=== PATIENT | female | born 1985 | race Caucasian/White ===

== ENCOUNTER 2018-07-14 02:04 | Outpatient (CLI) | payer OTHER, SELFPAY ==
[2018-07-14 10:19] LABS: Cholesterol 258 mg/dL (50-200); HDL Cholesterol 51 mg/dL (40-60); LDL CHOLESTEROL 181 mg/dL (<100); TSH (W/Ref FT4) 1.28 uIU/mL (0.358-3.74); Triglyceride 60 mg/dL (30-150)
== END 2018-07-14 02:24 ==
PROVIDERS: PCP Family Medicine; Visit Provider Family Medicine
DX: Z00.00 Encounter for general adult medical examination without abnormal findings (principal); Z13.220 Encounter for screening for lipoid disorders; Z13.29 Encounter for screening for other suspected endocrine disorder
CPT/HCPCS: 36415; 80061; 83721; 84443

== ENCOUNTER 2018-10-17 10:15 | Outpatient (REF) | payer OTHER, SELFPAY ==
--- NOTE | 2018-10-17 09:30 | PAPFT_PTH ---
PATIENT: Kyara Archer LOC: [facility] U#:[id number] AGE/SX: 33/F ROOM: RE10/17/[address]: FLY Holland : 1985 BED: DIS: 10/17/2018 SPEC #: [id number] RECD: 10/17/18 13:02 STATUS: KAL BUSTAMANTE #: [id number] NEEMA: 10/17/18 09:[address]: Viridiana Choi DEPT: [facility] Cytology RECD BY: Clotilde Clark ENTERED: 10/17/18 13:02 SP TYPE: PAPFT OT DR: Carol Latham MD, DC Tissues: 1 - CX/ENDOCX FOR PAP SMEARS Procedures: PAP THIN PREP/UVM Screening HPV DNA PROBE Comments: [id number]
== END 2018-10-17 10:35 ==
LOC: LBN 10:15
PROVIDERS: PCP Family Medicine; Visit Provider Nurse Practitioner Family
DX: Z12.4 Encounter for screening for malignant neoplasm of cervix (principal); Z11.51 Encounter for screening for human papillomavirus (HPV)
CPT/HCPCS: 88142; 87624

== ENCOUNTER 2019-07-20 03:26 | Outpatient (CLI) | payer OTHER, SELFPAY ==
[2019-07-20 15:38] LABS: TSH (W/Ref FT4) 0.96 uIU/mL (0.36-3.74)
[2019-07-20 15:55] LABS: Hemoglobin A1C 5.5 % (3.8-5.6)
== END 2019-07-20 03:46 ==
PROVIDERS: PCP Family Medicine; Visit Provider Family Medicine
DX: E03.9 Hypothyroidism, unspecified (principal); R63.8 Other symptoms and signs concerning food and fluid intake
CPT/HCPCS: 36415; 83036; 84443

== ENCOUNTER 2020-08-19 16:25 | Outpatient (REF) | payer OTHER, SELFPAY ==
--- NOTE | 2020-08-19 16:00 | ENDOMET_PTH ---
PATIENT: Kyara Archer LOC: [facility] U#:[id number] AGE/SX: 35/F ROOM: RE08/19/[address]: Soheila Jarrell : 1985 BED: DIS: 08/19/2020 SPEC #: [id number] RECD: 08/19/20 18:08 STATUS: KAL BUSTAMANTE #: [id number] NEEMA: 08/19/20 16:[address]: Soheila Jarrell DEPT: Surgical Specimen RECD BY: Clotilde Clark ENTERED: 08/19/20 18:09 SP TYPE: Endomet OTHR DR: Carol Latham MD, DC Tissues: 1 - ENDOMETRIUM BX/CURRETTE Procedures: GROSS AND MICRO LEVEL 4 Comments:
== END 2020-08-19 16:26 | disposition home or self-care (01) ==
LOC: LBN 16:25
PROVIDERS: PCP Family Medicine; Visit Provider Obstetrics & Gynecology Gynecology
DX: N93.8 Other specified abnormal uterine and vaginal bleeding (principal); N85.01 Benign endometrial hyperplasia
CPT/HCPCS: 88305

== ENCOUNTER 2020-11-15 03:21 | Outpatient (CLI) | payer OTHER, SELFPAY ==
[2020-11-15 14:00] LABS: TSH (W/Ref FT4) 1.11 uIU/mL (0.36-3.74)
== END 2020-11-15 03:22 | disposition home or self-care (01) ==
LOC: LBO 03:22
PROVIDERS: PCP Family Medicine; Visit Provider Family Medicine
DX: E03.9 Hypothyroidism, unspecified (principal)
CPT/HCPCS: 36415; 84443

== ENCOUNTER 2021-05-12 03:36 | Outpatient (CLI) | payer OTHER, SELFPAY ==
[2021-05-12 12:30] LABS: TSH (W/Ref FT4) 0.43 uIU/mL (0.36-3.74)
[2021-05-12 18:26] LABS: Thyroglobulin Antibody <15 U/mL (<=60)
== END 2021-05-12 03:37 | disposition home or self-care (01) ==
LOC: LBO 03:36
PROVIDERS: PCP Family Medicine; Visit Provider Family Medicine
DX: Z00.00 Encounter for general adult medical examination without abnormal findings (principal); E03.9 Hypothyroidism, unspecified
CPT/HCPCS: 36415; 84443; 86800

== ENCOUNTER 2021-12-22 09:14 | Outpatient (REF) | payer OTHER, SELFPAY ==
--- NOTE | 2021-12-22 09:08 | PAPFT_PTH ---
PATIENT: Kyara Archer LOC: [place] U#:[id number] AGE/SX: 36/F ROOM: RE12/22/[address]: Soheila Jarrell : 1985 BED: DIS: 12/22/2021 SPEC #: [id number] RECD: 12/22/21 13:00 STATUS: KAL BUSTAMANTE #: [id number] NEEMA: 12/22/21 09:[address]: Soheila Jarrell DEPT: [facility] Cytology RECD BY: Clotilde Clark ENTERED: 12/22/21 13:00 SP TYPE: PAPFT OTHR DR: Carol Latham MD, DC Tissues: 1 - CX/ENDOCX FOR PAP SMEARS Procedures: PAP THIN PREP/UVM Screening HPV DNA PROBE Comments: [id number]
== END 2021-12-22 09:15 | disposition home or self-care (01) ==
LOC: LBN 09:14
PROVIDERS: PCP Family Medicine; Visit Provider Obstetrics & Gynecology Gynecology
DX: Z12.4 Encounter for screening for malignant neoplasm of cervix (principal); Z11.51 Encounter for screening for human papillomavirus (HPV)
CPT/HCPCS: 88142; 87624

== ENCOUNTER 2022-03-20 01:35 | Outpatient (CLI) | payer OTHER, SELFPAY ==
[2022-03-20 13:42] LABS: TSH (W/Ref FT4) 1.83 uIU/mL (0.36-3.74)
== END 2022-03-20 01:36 | disposition home or self-care (01) ==
LOC: LBO 01:35
PROVIDERS: PCP Family Medicine; Visit Provider Family Medicine
DX: E03.9 Hypothyroidism, unspecified (principal)
CPT/HCPCS: 36415; 84443

== ENCOUNTER 2022-05-18 02:24 | Outpatient (CLI) | payer OTHER, SELFPAY ==
[2022-05-18 16:32] LABS: TSH (W/Ref FT4) 1.44 uIU/mL (0.36-3.74)
== END 2022-05-18 02:25 | disposition home or self-care (01) ==
LOC: LBO 02:24
PROVIDERS: PCP Family Medicine; Visit Provider Family Medicine
DX: E03.9 Hypothyroidism, unspecified (principal)
CPT/HCPCS: 36415; 84443

== ENCOUNTER 2022-07-22 02:31 | Outpatient (CLI) | payer OTHER, SELFPAY ==
--- NOTE | 2022-07-22 11:00 | DI.MRI_ITS ---
Exam(s) MR LOWER EXTREMITY LT WO CLINICAL HISTORY: left leg mass, increasing in size,r22.42. TECHNIQUE: Multiplanar multisequence MRI was performed. CONTRAST MATERIAL: Noncontrast COMPARISON: None. FINDINGS: BONES/JOINTS: No fracture or contusion pattern. No bone lesions identified. The visualized portions o f the knee are unremarkable. MUSCULOTENDINOUS STRUCTURES: Unremarkable. SOFT TISSUES: 3 x 2 by 6.5 centimeter circumscribed ovoid lesion is noted in the lateral subcutaneous fat of the upper portion of the leg. It shows relatively homogeneous intermediate signal on T1 weig hted images and heterogeneous signal on T2 weighted images. IMPRESSION: Circumscribed heterogeneous appearing lesion in the subcutaneous fat of the leg. Further evaluation with contrast-enhanced MRI or surgical excision is recommended. DATA REPOSITORY:
== END 2022-07-22 02:51 ==
LOC: DI 02:31
PROVIDERS: PCP Family Medicine; Visit Provider Family Medicine
DX: R22.42 Localized swelling, mass and lump, left lower limb (principal)
CPT/HCPCS: 73718

== ENCOUNTER 2022-07-29 02:56 | Outpatient (CLI) | payer OTHER, SELFPAY ==
--- NOTE | 2022-07-29 08:30 | DI.MRI_ITS ---
Exam(s) MR LOWER EXTREMITY LT W EXAM: MR LOWER EXTREMITY LT W CLINICAL HISTORY: growing mass with heterogenicity; contarst enhance TECHNIQUE: Multiplanar multisequence MRI of the left leg was performed. CONTRAST MATERIAL: IV Contrast: 20 ML of Dotarem contrast administered. COMPARISON: MR MR LOWER EXTREMITY LT WO from 07/22/2022 FINDINGS: There is again seen a mass in the subcutaneous tissues of the lateral lower leg measuring 3.3 cm AP x 1.7 cm transverse by 6.2 cm craniocaudad. There is hyperintense signal seen on the noncontrast imag es suggesting internal hemorrhage. Following contrast administration there is heterogeneous enhancem ent present. There is no involvement of the underlying musculature or bones. There is normal marrow signal seen in the visualized portions of the tibia and fibula. IMPRESSION: Heterogeneously enhancing soft tissue mass in the subcutaneous tissues in the lateral left lower leg. A soft tissue sarcoma cannot be excluded. Biopsy should be considered for further evaluation. DATA REPOSITORY:
[2022-07-29] MEDS: Normal Saline Flush 10 ML SYR IVP (14:38)
[2022-07-29] MEDS: Gadoterate meglumine 20 ML SYRINGE IVP (14:39)
== END 2022-07-29 03:16 ==
LOC: DI 02:56
PROVIDERS: PCP Family Medicine; Visit Provider Family Medicine
DX: R22.42 Localized swelling, mass and lump, left lower limb (principal)
CPT/HCPCS: 73719

== ENCOUNTER 2022-08-05 11:06 | Outpatient (REF) | payer OTHER, SELFPAY ==
--- NOTE | 2022-08-05 11:00 | SKI_PTH ---
PATIENT: Kyara Archer LOC: [facility] U#:[id number] AGE/SX: 37/F ROOM: RE08/05/[address]: Adrián Price MD : 1985 BED: DIS: 08/05/2022 SPEC #: [id number] RECD: 08/05/22 11:16 STATUS: KAL REMicaela #: [id number] NEEMA: 08/05/22 11:[address]: Adrián Price DEPT: Surgical Specimen RECD BY: Clotilde Clark ENTERED: 08/05/22 11:16 SP TYPE: RIMMA MODI DR: Carol Latham MD, DC Tissues: 1 - SKIN BIOPSY(SHAVE/PUNCH) Procedures: GROSS AND MICRO LEVEL 4 Comments: [id number]
== END 2022-08-05 11:07 | disposition home or self-care (01) ==
LOC: LBN 11:06
PROVIDERS: PCP Family Medicine; Visit Provider Surgery
DX: R22.42 Localized swelling, mass and lump, left lower limb (principal)
CPT/HCPCS: 88305

== ENCOUNTER 2022-08-21 06:10 | Day surgery (SDC) | payer OTHER, SELFPAY ==
--- NOTE | 2022-08-20 18:07 | W.PM.OP ---
Date of service: 08/21/22 Time of Service: 08:17 Operative Note Operative Note DATE OF PROCEDURE: 08/21/22 PRE-OP DIAGNOSIS: Leg mass POST-OP DIAGNOSIS: same PROCEDURE: Excision and primary closure of left leg mass SURGEON: Adrián Price SUPERVISOR STATEMENT CLERKS: Ne Van ANESTHESIA TYPE: Local By Surgeon and General:No Airway Refer to Anesthesia Record ESTIMATED BLOOD LOSS: 20 COMPLICATIONS: None Patient was transported to: same day Patient's condition: stable Indications: Kyara is a 37-year-old woman who has had a mass on the lateral aspect of her left lower extremity since she was a child. Recently, it is grown in size a bit, and become a bit uncomfortable. After seeking medical opinion, there was some concern raised that this may be a sarcoma. She underwent an MRI that supported that diagnosis. Subsequently, we did ultrasound-guided core needle biopsies that appeared more consistent with old traumatic injury as opposed to malignancy. We talked about the risks and benefits of excision with primary closure, I explained that if this is in fact a sarcoma, she will need another operation for wider excision to normal margins. She understood the risks of the operation and wished to proceed. Procedure Description: The patient was moved onto the operating room table, and encouraged to find a comfortable position. The leg was raised on a padded elevator. Next, anesthesia was induced. When she was comfortable, I prepped and draped the left lower extremity in the usual fashion. I established a generous field block using local anesthetic. Next, we made a linear incision over the mass. We dissected down sharply through the skin, taking care to stay superficial to the actual mass itself. We then raised skin flaps anteriorly, as well as cephalad. The dissection towards the head allowed us to come over the top margin of the lesion, and down onto the subcutaneous fat superficial to the muscular fascia below. This dissection was continued down along the underside of the lesion. Electrocautery was used to ensure hemostasis. Once the circumferential dissection was completed, the mass was completely using Bovie electrocautery. Orientation was preserved, and one suture was used to kroin the cephalad or head position of the lesion, 2 sutures were used to korin the more superficial portion of the lesion, and multiple sutures were used to korin the more posterior element of it in normal anatomic orientation The specimen was passed off the field. Surgical site was then irrigated. It appeared hemostatic. Soft tissues were closed in multiple layers. Skin was secured with Steri-Strips, Mepilex dressing was applied, and an Mauro wrap was used to provide some gentle pressure on the wound to minimize postoperative hematoma.
--- NOTE | 2022-08-20 18:21 | PDOC.DSDIS_ITS ---
Date of service: 08/21/22 Time of Service: 08:23 Discharge Plan Disposition Patient Disposition: Home Condition: Good Discharge Details Reason For Visit: excision leg mass Attending Provider: Adrián Price Primary Care Provider: Carol Latham Home Meds and New Rx's Prescriptions: New tramadol 50 mg tablet 50 mg PO Q8H PRN (Reason: pain) Qty: 9 0RF Rx Instructions: Take 1 tablet by mouth up to every 8 hours if needed for severe pain. Be careful as this medication is a bit strong. Do not drive while using this medication. Continued Kyleena 17.5 mcg/24 hrs (5 yrs) 19.5 mg intrauterine device 1 device intrauterine ONCE Qty: 1 0RF Rx Instructions: as a single dose famotidine 20 mg tablet 20 mg PO BID Qty: 180 3RF levothyroxine 88 mcg tablet 88 mcg PO DAILY Qty: 90 3RF Discharge Instructions Additional Instructions: Kyara, we were able to remove the mass from your left leg today without any problems. We will send it off to the pathologist for the final diagnosis. I have provided a prescription for some tramadol in case you have pain that is not well managed with Tylenol and ibuprofen. You can leave the top Band-Aid on for the next 24 hours or so. After that, remove it and leave the Steri-Strips which are underneath in place. Wash it with soap and water every day. It is okay if the Steri-Strips fall off on their own. If they are still in place on August 28, please remove them yourself. We have made a follow-up appointment in the office for you on September 02 at 8:15 in the morning. If you have any problems in the meantime, please do not hesitate to call. 1. Resume all of your medications. 2. Ice packs and heating pads are fine to use for pain. 3. Okay to use tylenol and ibuprofen over the counter as needed. Use tramadol as needed for pain. 4. Leave bandage in place for 24 hours, then remove. 5. Shower with warm soapy water. Pat dry. Use a bandaid if needed to protect your clothing. 6. No soaking or tub baths until I see you in the office. 7. No heavy lifting until I see you in the office. 8.Call the office (or go directly to the emergency room after hours) if you notice any of the following: Develop chills (warm to touch), or if you have a thermometer and your temperature is above 101 Difficulty breathing or difficultly swallowing Persistent vomiting Any bleeding ? exceeding one tablespoon 6. Call your physician if the site where your intravenous was started becomes red, swollen, painful, and warm to touch. Referrals: Adrián Price MD [ [facility] STAFF PHYSICIAN] - (September 02 at 8:15 AM) Remove Dressings/Wound Care:: 24 hours Diet:: As Tolerated Discharge Orders Discharge Orders: Discharge Order (Routine); Ordered 08/20/22 Ordered By: Adrián Price DS: Diagnosis Discharge Diagnosis (1) Lower leg mass: Status: Acute
[2022-08-21 06:15] VITALS: BP 143/97; PULSE 88; RESP 18; TEMP 36.1; O2SAT 99
[2022-08-21 06:35] VITALS: BMI 37.6
--- NOTE | 2022-08-21 06:35 | ANES.PREOP_ITS ---
General Info Date of Service Date Performed: 08/21/22 Height: 5 ft 4 in Weight: 99.5 kg Body Mass Index (BMI): 37.6 Surgical Procedure: Operation Date: 08/21/22 07:40 Proposed Procedure Side Surgeon p Excision and Closure Calf Mass Left Adrián Price MD Meds Allergies and Home Medications Allergies Allergy/AdvReac Type Severity Reaction Status Date / Time No Known Allergies Allergy Verified 08/21/22 06:26 Home Medication Medication Instructions Recorded levonorgestrel 17.5 mcg/24 hrs 1 device intrauterine ONCE #1 ea 10/13/20 (5yrs) 19.5mg intrauterine device (Kyleena) famotidine 20 mg tablet 20 mg PO BID #180 tabs 03/09/22 levothyroxine 88 mcg tablet 88 mcg PO DAILY #90 tab-caps 03/23/22 Current Visit Medications: Current Medications Generic Name Dose Route Start Last Admin Trade Name Freq PRN Reason Stop Dose Admin Acetaminophen 1,000 mg 08/21/22 06:00 Acetaminophen 500 Mg Tab PO 09/19/22 23:59 PREOP JACQUELINE Celecoxib 200 mg 08/21/22 06:00 Celecoxib 200 Mg Cap PO 09/19/22 23:59 PREOP JACQUELINE Gabapentin 600 mg 08/21/22 06:00 Gabapentin 300 Mg Cap PO 09/19/22 23:59 PREOP JACQUELINE Ringer's Solution 1,000 mls @ 80 mls/hr 08/21/22 06:00 IV 09/19/22 23:59 INFUSION [facility] IV Miscellaneous Supplies 1 each 08/21/22 06:00 Iv Access IV 09/19/22 23:59 DIRECTED JACQUELINE Morphine Sulfate 2 mg 08/20/22 18:06 Morphine 4 Mg/Ml Syr IVP 09/19/22 18:05 Q1H PRN PRN Sodium Chloride 0 ml 08/21/22 06:00 Normal Saline Flush 10 Ml Syr IV 09/19/22 23:59 PRN PRN Sodium Chloride 0 ml 08/21/22 06:00 Normal Saline 10 Ml Vial IJ 09/19/22 23:59 DIRECTED PRN Sterile Water 0 ml 08/21/22 06:00 Water,Injection,Sterile 10 Ml Vial IJ 09/19/22 23:59 DIRECTED PRN Tramadol HCl 50 mg 08/20/22 18:06 Tramadol 50 Mg Tab PO 09/19/22 18:05 Q6H PRN PRN Pain PFSH Active Problems Active Problems: Problem Status Onset Code Lower leg mass R22.40 Increased BMI R63.8 Hypothyroidism, unspecified 10/17/12 E03.9 Hyperlipidemia 09/23/09 E78.5 Heartburn R12 Dyshidrotic eczema 05/14/14 L30.1 Abnormal uterine bleeding (AUB) N93.9 History of endometrial biopsy Z92.89 IUD (intrauterine device) in place Z97.5 Encounter for annual physical exam Z00.00 Subcutaneous mass of left lower extremity R22.42 Medical History Medical History Gestational hypertension Tobacco Smoking/Tobacco Use Status: Never Passive smoking exposure: Yes (not recent) Second hand exposure: Yes Alcohol Alcohol Intake: current Alcohol intake frequency: a few times a month Substance Use Substance use: Never Substance use type: does not use Prental History History 2 Para 2 Hx # Term Pregnancies Multiple births Hx # Pregnancies Ectopic pregnancies AB induced Hx Number of Living Children AB spontaneous Vital Signs and Lab Results Vital Signs Most Recent Vital Signs in EMR: Most Recent Vital Signs Temp Pulse Resp BP Pulse Ox 36.1 C L 88 18 143/97 H 99 08/21/22 06:15 08/21/22 06:15 08/21/22 06:15 08/21/22 06:15 08/21/22 06:15 Lab Results Blood Type / Crossmatch: No Data to Display Complete Blood Count: No Data to Display Complete Metabolic Panel: No Data to Display Liver Function Panel: No Data to Display Coagulation Panel: No Data to Display Cardiac Panel: No Data to Display Arterial Blood Gas: No Data to Display Venous Blood Gas: No Data to Display Pancreas Panel: No Data to Display Thyroid Panel: No Data to Display Infectious Disease: No Data to Display Blood Cultures: No Data to Display Toxicology Panel: No Data to Display Panel: No Data to Display Anesthesia Assessment and Plan Anesthesia History Personal History: No History of Anesthesia Complications Family History: No Family History of Anesthesia Complications Exercise Tolerance Exercise Tolerance: Metabolic Equivalents>4 Pertinent Negatives Pertinent Negatives: No Symptoms of GERD, No Major Cardiovascular Symptoms or Complaints, No Major Pulmonary Symptoms or Complaints and No History of CVA/TIA Cardiac & Pulmonary Exam Cardiac Exam: Normal S1/S2 Heart Sounds Pulmonary Exam: Clear Bilateral Breath Sounds Implantable Cardiac Device Does patient have a Pacemaker or an ICD?: No Airway Exam Known Difficult Airway: No Mallampati Class: 2 Mouth Opening: Normal (> 3cm) Thyromental Distance: Greater than 3 cm Neck Range of Motion: Full ROM Neck Circumference: Normal Teeth Condition: Normal Dentition ASA Classification ASA Score: ASA 2 Emergency Case?: No NPO Status NPO Status: NPO Clears >2 hours, Solids >8 hours Status Status: Negative HCG Anesthesia Plan Resuscitation Status: Full Code Anesthesia Technique: General Anesthesia Airway Planned: Natural Airway Monitors Used: Standard Monitors
[2022-08-21] MEDS: Lactated Ringers 1,000 ML 80 ML IV (06:42)
[2022-08-21] MEDS: Acetaminophen 500 MG TAB 1000 MG PO (06:47)
[2022-08-21] MEDS: Celecoxib 200 MG CAP PO (06:48)
[2022-08-21] MEDS: Gabapentin 300 MG CAP 600 MG PO (06:48)
--- NOTE | 2022-08-21 06:48 | W.PREOPHP ---
Assessment and Plan Assessment and plan (1) Lower leg mass: Status: Acute Assessment and plan: We reviewed the operative plan today, which is linear excision, dissection of the mass, excision and primary closure. I think she has a good understanding of the nature of this operation as well as the risks and the benefits. History of Present Illness History of Present Illness Chief Complaint: Left lateral leg mass Narrative: Kyara is 37 years old. I saw her in the office for a chief complaint of a mass on the lateral aspect of her left calf. She had already undergone MRI. Findings of the MRI described a 6 cm long, by approximately 4 cm wide mass within the subcutaneous tissues superficial to the muscles of the left calf. There were some features concerning for sarcoma. In light of this, I performed ultrasound-guided core needle biopsy in the office. Pathology demonstrated fibrinous material with focal calcific fibrosis. This did not support a diagnosis of sarcoma, or other malignancy. We talked about the risks of primary excision and closure, which could demonstrate sarcoma, which would result in the need for another operation with wider excisional margins. Alternatively, as the pathology in her history suggest, this may be old traumatic soft tissue injury. In that regard primary excision and closure would result in less morbid surgery. She would like to proceed with excision. PFSH All Active Problems Lower leg mass (Acute) growing, see mri. Contrast MRI ordered Increased BMI (Acute) Hypothyroidism, unspecified (Acute 10/17/12) Hyperlipidemia (Acute 09/23/09) Heartburn (Acute) Dyshidrotic eczema (Acute 05/14/14) Abnormal uterine bleeding (AUB) (Acute) onset after of daughter. History of endometrial biopsy (Acute) 08/19/2020. For evaluation of abnormal uterine bleeding IUD (intrauterine device) in place (Acute) 09/2020. Kyleena. Encounter for annual physical exam (Acute) Subcutaneous mass of left lower extremity (Acute) Medical History Gestational hypertension Family History Mother Depression Migraine Hyperlipidemia Stroke Father , 57 Essential hypertension Bladder cancer Sister Narcolepsy Brother Depression Maternal Grandfather No problems noted. Paternal Grandfather Diabetes Essential hypertension Prostate cancer Maternal Grandmother , 73 Diabetes Essential hypertension Heart disease Hyperlipidemia Stroke Lung cancer Paternal Grandmother Essential hypertension Hyperlipidemia Depression Son No problems noted. Daughter No problems noted. Social History Smoking/Tobacco Use Status: Never Second Hand Exposure: Yes Smoking risk assessment performed?: Yes Alcohol Intake: current Alcohol Intake frequency: a few times a month Drug use: Never Substance use type: does not use Caregiver/Support person: No Household members: spouse and children Housing: house Number of Children: 2 Communication Needs: None Education Level: college Details: RN Do you need help understanding health information?: Never Pets and animals: Yes Pets and animals: dog(s) Sexually active: Yes Do you think of yourself as: straight/heterosexual Current gender identity: female What is your relationship status?: How often do you talk on the phone with friends or family?: three or more times per week How often do you get together with friends or relatives?: once per week How often do you attend mu-ism or spiritism services?: decline to answer Panel score (0-1 are the most socially isolated patients): 2 What type of physical activity do you participate in: walking and other Details: Hockey Duration: 30-45 minutes/day Frequency: 3-4 times per week Sharon/Nondenominational: None Seatbelt use: always Helmet use: Yes Helmet use: always Drive intox or ride w/intox buggy driver: No Do you feel safe at home: Yes Do you feel safe in your relationship?: Yes Female Reproductive History Menstrual control method: permanent sterilization (Vasectomy) History History 2 Para 2 Hx # Term Pregnancies Multiple births Hx # Pregnancies Ectopic pregnancies AB induced Hx Number of Living Children AB spontaneous Meds Allergies and Home Medications Allergies Allergy/AdvReac Type Severity Reaction Status Date / Time No Known Allergies Allergy Verified 08/21/22 06:26 Home Medications Medication Instructions Recorded Confirmed Type levonorgestrel 17.5 mcg/24 hrs 1 device intrauterine ONCE #1 ea 10/13/20 08/21/22 Rx (5yrs) 19.5mg intrauterine device (Kyleena) famotidine 20 mg tablet 20 mg PO BID #180 tabs 03/09/22 08/21/22 Rx levothyroxine 88 mcg tablet 88 mcg PO DAILY #90 tab-caps 03/23/22 08/21/22 Rx Exam Const General: cooperative, healthy appearing and comfortable Orientation: awake and oriented x3 Eyes General: appearance normal, both eyes and all related structures Conjunctivae: conjunctivae normal Sclera: sclerae normal Resp Effort & Inspection: normal respiratory effort and able to speak in complete sentences Auscultation: clear to auscultation bilaterally Cardio Jugular venous pressure: no JVD Rate: regular rate Rhythm: regular rhythm Heart Sounds: S1 normal and S2 normal GI Inspection: non-distended Palpation: soft, no guarding, no hernias and nontender Auscultation: normal bowel sounds Skin General skin exam: normal turgor Other: Left calf has a 6 x 4 cm firm, slightly mobile mass. No overlying skin changes. Neuro General: patient alert, patient awake and patient oriented x3 Cognition: normal cognition Extrem Right lower extremity: no edema Left lower extremity: no edema Results Last Vital Signs Temp 97.0 F L 08/21/22 06:15 Pulse 88 08/21/22 06:15 Resp 18 08/21/22 06:15 BP 143/97 H 08/21/22 06:15 Pulse Ox 99 08/21/22 06:15
--- NOTE | 2022-08-21 08:00 | SOFT_PTH ---
PATIENT: Kyara Archer LOC: [facility] U#:[id number] AGE/SX: 37/F ROOM: RE08/21/[address]: Adrián Price MD : 1985 BED: DIS: 08/21/2022 SPEC #: [id number] RECD: 08/21/22 11:26 STATUS: KAL RE #: [id number] NEEMA: 08/21/22 08:[address]: Adrián Price DEPT: Surgical Specimen RECD BY: Clotilde Clark ENTERED: 08/21/22 11:27 SP TYPE: SOFT OTHR DR: Carol Latham MD, DC Tissues: 1 - SOFT TISSUE MISC (INC. LIPOMA) Procedures: IMMUNOPEROXIDASE STAIN GROSS AND MICRO LEVEL 5 DECALCIFICATION Comments: [id number]
[2022-08-21 08:20] VITALS: BP 112/80; PULSE 78; RESP 14; TEMP 36.2; O2SAT 94
[2022-08-21 08:50] VITALS: BP 105/64; PULSE 74; RESP 16; TEMP 36.3; O2SAT 94
[2022-08-21] MEDS: traMADol 50 MG TAB PO (08:59)
--- NOTE | 2022-08-21 11:43 | W.ANESPOSTOP ---
Postoperative Evaluation Date, Time and Location Date Performed: 08/21/22 Time Performed: 11:43 Patient Location: Day Surgery Unit Vital Signs Most Recent Imported Vital Signs: Most Recent Vital Signs Temp Pulse Resp BP Pulse Ox 36.3 C L 74 16 105/64 94 08/21/22 08:50 08/21/22 08:50 08/21/22 08:50 08/21/22 08:50 08/21/22 08:50 Pain Score Most Recent Pain Score: Most Recent Pain Score Pain Level 0 08/21/22 08:59 Assessment Mental Status: Awake (Alert & Oriented to Patient Baseline) Airway and Respiratory Function: Patent airway with normal (patient baseline) respiratory exam Cardiovascular Function: Hemodynamically Stable Hydration Status: Adequately Hydrated Nausea & Vomiting: No Nausea or Vomiting Pain: Pt. Denies Any Pain Peripheral Nerve Block: Patient did not receive a nerve block
== END 2022-08-21 09:37 | disposition home or self-care (01) ==
PROVIDERS: PCP Family Medicine; Visit Provider Surgery
PROC: (CPT 27634; principal; 2022-08-21 07:30)
DX: E03.9 Hypothyroidism, unspecified; E78.5 Hyperlipidemia, unspecified; D23.72 Other benign neoplasm of skin of left lower limb, including hip
CPT/HCPCS: 27634; 81025; 88304; 88307; 88311; 88361; J1100; J2250; J2405; J2704

== ENCOUNTER 2023-04-02 14:40 | Outpatient (CLI) | payer OTHER, SELFPAY ==
[2023-04-02 13:19] LABS: HCT 35.7 % (36.0-46.0); HGB 11.8 g/dL (11.2-15.7); MCH 27.8 pg (27.0-33.0); MCHC 33.1 % (32.0-36.0); MCV 84 fL (80-95); MPV 9.9 fL (8.0-11.0); Platelet Count 365 10^3/uL (130-400); RBC 4.25 10^6/uL (3.93-5.22); RDW-SD 39.9 fL; WBC 6.26 10^3/uL (4.4-10.8)
[2023-04-02 14:05] LABS: ALT 38 U/L (14-59); AST 18 U/L (15-37); Albumin 4.2 g/dL (3.4-5.0); Alkaline Phosphatase 73 U/L (46-116); Anion Gap 8.1 mmol/L (3-11); BUN 15 mg/dL (7-18); Bilirubin, Total 0.6 mg/dL (0.2-1.0); CO2 27.9 mmol/L (21.0-32.0); CREATININE 0.8 mg/dL (0.55-1.02); Calcium 9.4 mg/dL (8.5-10.1); Calculated LDL 175 mg/dL (<100); Chloride 103 mmol/L (98-107); Cholesterol 243 mg/dL (<200); Estimated GFR 96.66 (mL/min/1.73m2); Ferritin 12 ng/mL (8-252); Glucose 96 mg/dL (74-106); HDL Cholesterol 47 mg/dL (40-60); Potassium 3.8 mmol/L (3.5-5.1); Sodium 139 mmol/L (136-145); TSH (W/Ref FT4) 1.08 uIU/mL (0.36-3.74); Total Protein 7.9 g/dL (6.4-8.2); Triglyceride 107 mg/dL (<150)
[2023-04-02 14:41] LABS: Iron 67 ug/dL (50-170)
[2023-04-02 21:15] LABS: Lab Add On Test DONE
[2023-04-06 15:16] LABS: Apolipoprotein A1, S 113 mg/dL (>=140); Apolipoprotein B, S 118 mg/dL (See Comment)
== END 2023-04-02 14:41 | disposition home or self-care (01) ==
LOC: LBO 14:40
PROVIDERS: PCP Family Medicine; Visit Provider Family Medicine
DX: E03.9 Hypothyroidism, unspecified (principal); I10 Essential (primary) hypertension; Z00.00 Encounter for general adult medical examination without abnormal findings; E78.5 Hyperlipidemia, unspecified
CPT/HCPCS: 36415; 80053; 80061; 82172; 85027; 82728; 83540; 84443

== ENCOUNTER 2024-01-03 13:11 | Outpatient (CLI) | payer OTHER, SELFPAY ==
[2024-01-03 12:13] LABS: TSH (W/Ref FT4) 0.89 uIU/mL (0.36-3.74)
== END 2024-01-03 13:12 | disposition home or self-care (01) ==
LOC: LBO 13:12
PROVIDERS: PCP Family Medicine; Visit Provider Family Medicine
DX: E03.9 Hypothyroidism, unspecified (principal)
CPT/HCPCS: 36415; 84443

== ENCOUNTER 2024-04-26 03:42 | Outpatient (CLI) | payer OTHER, SELFPAY ==
[2024-04-26 12:54] LABS: Hemoglobin A1C 5.1 % (<5.7)
[2024-04-26 13:09] LABS: ALT 35 U/L (14-59); AST 20 U/L (15-37); Albumin 4.3 g/dL (3.4-5.0); Alkaline Phosphatase 60 U/L (46-116); Anion Gap 8.3 mmol/L (3-11); BUN 14 mg/dL (7-18); Bilirubin, Total 0.54 mg/dL (0.2-1.0); CO2 27.7 mmol/L (21.0-32.0); CREATININE 0.8 mg/dL (0.55-1.02); Calcium 9.5 mg/dL (8.5-10.1); Calculated LDL 141 mg/dL (<100); Chloride 104 mmol/L (98-107); Cholesterol 205 mg/dL (<200); Estimated GFR 96.06 (mL/min/1.73m2); Glucose 93 mg/dL (74-106); HDL Cholesterol 53 mg/dL (>or=50); Potassium 3.8 mmol/L (3.5-5.1); Sodium 140 mmol/L (136-145); TSH (W/Ref FT4) 0.84 uIU/mL (0.36-3.74); Total Protein 8.1 g/dL (6.4-8.2); Triglyceride 56 mg/dL (<150); Vitamin B12 400 pg/mL (193-986)
== END 2024-04-26 03:43 | disposition home or self-care (01) ==
LOC: LBO 03:42
PROVIDERS: PCP Family Medicine; Visit Provider Family Medicine
DX: I10 Essential (primary) hypertension (principal); Z00.00 Encounter for general adult medical examination without abnormal findings; E11.9 Type 2 diabetes mellitus without complications; E03.9 Hypothyroidism, unspecified
CPT/HCPCS: 36415; 80053; 80061; 82306; 82607; 83036; 84443

== ENCOUNTER 2024-09-24 12:04 | Emergency (ER) | payer OTHER, SELFPAY ==
[2024-09-24 12:08] VITALS: BP 137/89; PULSE 71; RESP 16; TEMP 36.8; O2SAT 99
--- NOTE | 2024-09-24 12:33 | ED.GENADUL_ITS ---
Discharge Plan Disposition Patient Disposition: Home Condition: Stable Discharge Details Clinical Impression: Hand laceration Primary Care Provider: Carol Latham ED Provider: Belle Molina Home Meds and New Rx's Prescriptions: No Action Kyleena 17.5 mcg/24 hrs (5 yrs) 19.5 mg intrauterine device 1 device intrauterine ONCE Qty: 1 0RF Rx Instructions: as a single dose famotidine 20 mg tablet 20 mg PO BID Qty: 180 3RF tirzepatide (weight loss) 10 mg/0.5 mL pen injector 10 mg subcut QWEEK Qty: 8 5RF levothyroxine 88 mcg tablet 88 mcg PO DAILY Qty: 90 3RF Discharge Instructions Instructions: Laceration Repair With Stitches ED Additional Instructions: Suture removal in 7 days. Discharge Data Discharge Physician: Belle Molina [facility] General Date/Time Provider Initiated Documentation: 09/24/24 12:11 . HPI Narrative: 39-year-old right-handed female presents for evaluation of left hand laceration. Patient was using a kitchen knife when she accidentally cut the webspace between her 1st and 2nd fingers. Bleeding is well-controlled. Tetanus is up-to-date. No numbness or tingling to extremities. She is able to fully range her fingers. Related Data Home Medications ?Medication ?Instructions ?Recorded ?Confirmed levonorgestrel 17.5 mcg/24 hr (up 1 device intrauterin e ONCE #1 ea 10/13/20 09/24/24 to 5 yrs) 19.5mg intrauterine device (Kyleena) levothyroxine 88 mcg tablet 88 mcg PO DAILY #90 tab-ca ps 03/06/24 09/24/24 famotidine 20 mg tablet 20 mg PO BID #180 tabs 04/2409/24/24 tirzepatide (weight loss) 10 10 mg (0.5 mL) subcut QWE EK #8 mL 04/24/24 09/24/24 mg/0.5 mL subcutaneous pen injector Previous Rx's ?Medication ?Instructions ?Recorded levonorgestrel 17.5 mcg/24 hr (up 1 device intrauterin e ONCE #1 ea 10/13/20 to 5 yrs) 19.5mg intrauterine device (Kyleena) levothyroxine 88 mcg tablet 88 mcg PO DAILY #90 tab-ca ps 03/06/24 famotidine 20 mg tablet 20 mg PO BID #180 tabs 04/24 tirzepatide (weight loss) 10 10 mg (0.5 mL) subcut QWE EK #8 mL 04/24/24 mg/0.5 mL subcutaneous pen injector Allergies Allergy/AdvReac Type Severity Reaction Status Date / Time No Known Allergies Allergy Verified 09/24/24 12:10 General Stated Complaint: Laceration BRE: 4 Review of Systems Narrative: Remainder of review of systems otherwise negative except for as noted in the HPI x 5. Exam Narrative Exam Narrative: General: non-toxic, no respiratory distress, comfortable HEENT: normocephalic, atraumatic, lids and lashes normal, PERRL, EOMI, anicteric sclera, no conjunctival injection, moist oral mucosa Musculoskeletal: 1.5 cm linear laceration webspace left hand between 1st and 2nd finger, full strength to flexion and extension of 1st finger at DIP and MCP, full strength to flexion and extension of 2nd finger at DIP, PIP, MCP, 2+ radial pulses, sensation tact, otherwise full range of motion of arms and legs, no tenderness to palpation. no clubbing, cyanosis, or edema Neurologic: appropriate for age, strength normal Psych: alert and oriented Skin: As above, otherwise no petechiae, no lesions, warm and dry Course Vital Signs Vital signs: Vital Signs Temperature 36.8 C 09/24/24 12:08 Pulse 71 09/24/24 12:08 Respiratory Rate 16 09/24/24 12:08 Blood Pressure 137/89 09/24/24 12:08 Pulse Oximetry 99 09/24/24 12:08 Temperature 36.8 C 09/24/24 12:08 Temperature Source Oral 09/24/24 12:08 Pulse 71 09/24/24 12:08 Respiratory Rate 16 09/24/24 12:08 Blood Pressure 137/89 09/24/24 12:08 Pulse Oximetry 99 09/24/24 12:08 Procedure Laceration Laceration 1: Date of Procedure: 09/24/24 Time of procedure: 12:15 Provider that performed the procedure: Belle Braswell Time Out Performed: Yes Patient Consented: Verbally Site: hand Side (If applicable): left Description: linear Depth: simple, single layer Local anesthetic: Lidocaine 1% Amount of anesthesia used (mL): 3 Skin layer closed with: other (5-0 Prolene) Suture size: 5-0 Number of sutures:: 6 Medical Decision Making 39-year-old female presents for evaluation of laceration to left hand. Wound was repaired by myself with good cosmetic effect. Neurologically intact. Patient instructed on wound care. [facility] All Active Problems Hand laceration (Acute) Encounter for annual physical exam (Acute) Increased BMI (Acute) Hypothyroidism, unspecified (Acute 10/17/12) Hyperlipidemia (Acute 09/23/09) Heartburn (Acute) Dyshidrotic eczema (Acute 05/14/14) IUD (intrauterine device) in place (Acute) 09/2020. Kyleena. 2021. AUB resolved. Subcutaneous mass of left lower extremity (Acute) Medical History History of endometrial biopsy 08/19/2020. For evaluation of abnormal uterine bleeding Abnormal uterine bleeding (AUB) onset after of daughter. Gestational hypertension Surgical History Lower leg mass growing, see mri. Contrast MRI ordered Leg skin lesion, left (~07/2022) 07/2022 Family History Mother Depression Migraine Hyperlipidemia Stroke Father , 57 Essential hypertension Bladder cancer Sister Narcolepsy Brother Depression Maternal Grandfather No problems noted. Paternal Grandfather Diabetes Essential hypertension Prostate cancer Maternal Grandmother , 73 Diabetes Essential hypertension Heart disease Hyperlipidemia Stroke Lung cancer Paternal Grandmother Essential hypertension Hyperlipidemia Depression Son No problems noted. Daughter No problems noted. Social History Smoking/Tobacco Use Status: Never Second Hand Exposure: Yes Smoking risk assessment performed?: Yes Alcohol Intake: current Alcohol Intake frequency: a few times a month Drug use: Never Substance use type: does not use Caregiver/Support person: No Household members: spouse and children Housing: house Number of Children: 2 Communication Needs: None Education Level: college Details: RN Do you need help understanding health information?: Never Pets and animals: Yes Pets and animals: dog(s) Sexually active: Yes Do you think of yourself as: straight/heterosexual Current gender identity: female What is your relationship status?: How often do you talk on the phone with friends or family?: three or more times per week How often do you get together with friends or relatives?: once per week How often do you attend advent or hinduism services?: decline to answer Panel score (0-1 are the most socially isolated patients): 2 What type of physical activity do you participate in: walking and other Details: Hockey Duration: 30-45 minutes/day Frequency: 3-4 times per week Sharon/Latter-Day: None Seatbelt use: always Helmet use: Yes Helmet use: always Drive intox or ride 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 Do you feel safe at home: Yes Do you feel safe in your relationship?: Yes Female Reproductive History Menstrual control method: permanent sterilization (Vasectomy) History History 2 Para 2 Hx # Term Pregnancies Multiple births Hx # Pregnancies Ectopic pregnancies AB induced Hx Number of Living Children AB spontaneous PAWSS Have you Been Recently Intoxicated or Drunk Within the Last 30 days?: No Have you Ever Experienced Previous Episodes of Alcohol Withdrawal?: No Have you ever Experienced Withdrawal Seizures?: No Have you ever Experienced Delirium Tremens(DT)s?: No Have you ever undergone Alcohol Rehabilitation Treatment (i.e, inpt ot outpatient treatment programs)?: No Have you ever Experienced Blackouts?: No Have you ever Combined Alcohol with other Downers within the last 90 days?: No Have you ever Combined Alcohol with any other Substance of Abuse during the last 90 days?: No Positive Blood Alcohol level on Presentation? [PCS.BAL]: No Evidence of Increased Autonomic Activity (i.e. HR>120, tremor, sweating, agitation, nausea)?: No Result: 0
== END 2024-09-24 12:38 | disposition home or self-care (01) ==
PROVIDERS: Emergency Provider Emergency Medicine Emergency Medical Services; PCP Family Medicine
DX: S61.412A Laceration without foreign body of left hand, initial encounter (principal); E03.9 Hypothyroidism, unspecified; I10 Essential (primary) hypertension; W26.0XXA Contact with knife, initial encounter
CPT/HCPCS: 12001; 99283

== ENCOUNTER 2024-10-03 15:52 | Outpatient (CLI) | payer OTHER, SELFPAY ==
--- NOTE | 2024-10-03 10:00 | DI.RAD_ITS ---
Exam(s) XR HAND LT COMPLETE EXAM: XR HAND LT COMPLETE CLINICAL HISTORY: worsening hand pain after laceration M79.642 S61.419A. TECHNIQUE: 2D digital imaging was performed of the left hand. Three views were obtained. AP, lateral and oblique views were obtained. COMPARISON: No exams were available for comparison FINDINGS: BONES: There is no acute or healing fracture or dislocation. No bony destructive lesion is seen. JOINTS: No dislocation present. SOFT TISSUE: There is no soft tissue gas. IMPRESSION: 1. No evidence of an acute or healing fracture or dislocation. 2. No soft tissue gas or foreign body. 3. There is no evidence of osteomyelitis. DATA REPOSITORY: RADIATION DOSE DELIVERED:
== END 2024-10-03 16:12 ==
LOC: DI 15:53
PROVIDERS: PCP Family Medicine; Visit Provider Family Medicine
DX: M79.642 Pain in left hand (principal); S61.419A Laceration without foreign body of unspecified hand, initial encounter; X58.XXXA Exposure to other specified factors, initial encounter
CPT/HCPCS: 73130

== ENCOUNTER 2024-11-14 04:49 | Outpatient (CLI) | payer OTHER, SELFPAY ==
[2024-11-14 14:30] LABS: HCT 36.7 % (36.0-46.0); HGB 12.6 g/dL (11.2-15.7); MCH 30.3 pg (27.0-33.0); MCHC 34.3 % (32.0-36.0); MCV 88 fL (80-95); MPV 9.1 fL (8.0-11.0); Platelet Count 318 10^3/uL (130-400); RBC 4.16 10^6/uL (3.93-5.22); RDW 11.8 % (11.7-14.6); RDW-SD 38.2 fL; WBC 6.05 10^3/uL (4.4-10.8)
[2024-11-14 16:25] LABS: ALT 46 U/L (14-59); AST 21 U/L (15-37); Albumin 4.3 g/dL (3.4-5.0); Alkaline Phosphatase 47 U/L (46-116); Anion Gap 7.9 mmol/L (3-11); BUN 15 mg/dL (7-18); Bilirubin, Total 0.6 mg/dL (0.2-1.0); CO2 29.1 mmol/L (21.0-32.0); Calcium 9.5 mg/dL (8.5-10.1); Chloride 103 mmol/L (98-107); Estimated GFR 112.75 (mL/min/1.73m2); Glucose 102 mg/dL (74-106); Potassium 3.9 mmol/L (3.5-5.1); Sodium 140 mmol/L (136-145); TSH (W/Ref FT4) 2.04 uIU/mL (0.36-3.74); Total Protein 7.7 g/dL (6.4-8.2)
== END 2024-11-14 04:50 ==
LOC: LBO 11-15 04:50
PROVIDERS: PCP Family Medicine; Visit Provider Family Medicine
DX: I10 Essential (primary) hypertension (principal); R10.9 Unspecified abdominal pain; E03.9 Hypothyroidism, unspecified
CPT/HCPCS: 36415; 80053; 85027; 84443

== ENCOUNTER 2025-01-25 12:26 | Outpatient (REF) | payer OTHER, SELFPAY | END 2025-01-25 12:27 | disposition home or self-care (01) | LOC: LBN 12:26 | PROVIDERS: PCP Family Medicine; Visit Provider Obstetrics & Gynecology | DX: Z12.4 Encounter for screening for malignant neoplasm of cervix (principal) | CPT/HCPCS: 88142; 87624 ==